=== PATIENT | female | born 2000 | race Two or more races ===

== ENCOUNTER 2021-01-26 21:12 | Emergency (ER) | payer BC ==
[~2021-01-26] VITALS: Ht 157.5 cm; Wt 75.0 kg
[2021-01-26] MEDS ORDERED: ALBUTEROL SULFATE 2.5 MG/3 ML NEBU. NEB ONE ×2 (21:30→22:15)
--- NOTE | 2021-01-26 22:08 | PHYS DOC ---
General Adult EDM: Chief Complaint: ASTHMA HPI: HPI: Patient is a 20 year old female with past medical history of asthma who is currently presents with a chief complaint of asthma exacerbation. Patient states onset of symptoms yesterday progressively worse. Patient has been using her prescription inhalers with minimal relief. Patient does have a cough with some sputum production. She denies any fevers chills. Review of Systems: Review of Systems: Review of systems: Constitutional symptoms- No fever, no chills. Eyes- No Discharge, No Visual Loss Respiratory symptoms-no shortness of breath positive cough positive wheeze Cardiovascular Systems; No chest pain, No Palpitations, No syncope Gastrointestinal symptoms: NO abdominal pain, no nausea, no vomiting or di arrhea. Genitourinary symptoms: No dysuria. Musculoskeletal symptoms: No back pain No extremity pain. NEUROLOGICAL Symptoms: No headache, no generalized weakness; No focal Weakness Heart Score: C/O Chest Pain: N/A Risk Factors: Risk Factors: DM, Current or recent (<one month) smoker, HTN, HLP, family history of CAD, obesity. Risk Scores: Score 0 - 3: 2.5% MACE over next 6 weeks - Discharge Home Score 4 - 6: 20.3% MACE over next 6 weeks - Admit for Clinical Observation Score 7 - 10: 72.7% MACE over next 6 weeks - Early Invasive Strategies Current Medications: Current Medications Medications (Trade) Dose Ordered Sig/Jose Antonio Start Time Stop Time Status Last Admin Dose Admin Albuterol Sulfate (Ventolin Neb Soln) 2.5 mg 1X ONCE 01/26/21 21:30 01/26/21 21:40 DC 01/26/21 21:46 2.5 MG Allergies: Allergies: Allergies Coded Allergies Type Severity Reaction Last Updated Verified shrimp Allergy Unknown 01/26/21 Yes Physical Exam: PE: General: alert, no acute distress. Skin: warm, dry and intact. Head:: Normocephalic, atraumatic. Neck: Trachea midline. Eyes: EOMI, Normal conjunctiva, No drainage CARDIOVASCULAR: Tachycardia RESPIRATORY: Expiratory wheeze tachypnea Back: Full range of motion. MUSCULOSKELETAL: Full range of motion of bilateral upper and lower extremities. GASTROINTESTINAL: Abdomen soft without rebound or guarding. NEUROLOGICAL: Alert and noted to person, place and time. No neurological def icits observed Psychiatric: Cooperative. Normal judgment Current Patient Data: Vital Signs: Vital Signs Date Time Temp Pulse Resp B/P (MAP) Pulse Ox O2 Delivery O2 Flow Rate FiO2 01/26/21 21:45 92 Room Air EKG: EKG: [] Radiology/Procedures: Radiology/Procedures: [] Course & Med Decision Making: Course & Med Decision Making Pertinent Labs and Imaging studies reviewed. (See chart for details) [] Treated with albuterol neb x2 with improvement Due to I decided to hold off on Solu-Medrol and prescription prednisone. Timi Disclaimer: Timi Disclaimer: This electronic medical record was generated, in whole or in part, using a voice recognition dictation system. Departure Departure Impression: Primary Impression: Asthma exacerbation Disposition: 01 DC HOME SELF CARE/HOMELESS Condition: STABLE Patient Instructions: Asthma, Adult Scripts Albuterol Sulfate (PROAIR HFA INHALER) 8.5 Gm Hfa.aer.ad 2 PUFF IH PRN Q4-6HRS PRN for wheezing for 21 Days, #1 INHALER 0 Refills Prov: ROSALIO TINAJERO DO 01/26/21 ROSALIO TINAJERO DO Jan 26, 2021 22:08
[2021-01-26] MEDS ORDERED: ALBU2.5V8 IH (23:07)
[2021-01-26 23:23] VITALS: BP 122/92
== END 2021-01-26 23:23 | disposition home or self-care (01) ==
LOC: ER 21:12
DX: O99.511 Diseases of the respiratory system complicating pregnancy, first trimester (principal); R05 Cough; R06.2 Wheezing; Z91.013 Allergy to seafood; Z3A.00 Weeks of gestation of pregnancy not specified
CPT/HCPCS: 94640; 99285; J7613

== ENCOUNTER 2021-01-27 02:56 | Inpatient (IN) | payer BC ==
[~2021-01-27] VITALS: Ht 157.5 cm; Wt 96.9 kg
[~2021-01-27 02:56] MED LIST: ALBU2.5V8 IH
[2021-01-27] MEDS ORDERED: IV NORMAL SALINE 500ML BAG 500 ML IV ONE (03:00)
[2021-01-27] MEDS ORDERED: ALBUTEROL SULFATE 2.5 MG/3 ML NEBU. NEB ONE (03:15)
[2021-01-27] MEDS ORDERED: IPRATRPIUM/ALBUTEROL 0.5/2.5MG 3 ML NEBU. NEB ONE (03:15)
[2021-01-27] MEDS ORDERED: MAGNESIUM SULFATE 1GM 100 ML IV ONE (03:15)
[2021-01-27 03:17] LABS: BASO % 0 % (0-3); EOS # 0.2 x10^3/uL (0.0-0.7); EOS % 1 % (0-3); HEMATOCRIT 39.3 % (36.0-47.0); HEMOGLOBIN 13.2 g/dL (12.0-15.5); LYMPH # 0.8 x10^3/uL (1.0-4.8); LYMPH % 6 % (24-48); MEAN CORPUSCULAR HEMOGLOBIN 27 pg (25-35); MEAN CORPUSCULAR HGB CONC 34 g/dL (31-37); MEAN CORPUSCULAR VOLUME 81 fL (79-100); MONO # 0.6 x10^3/uL (0.0-1.1); MONO % 4 % (0-9); NEUT # 13.1 x10^3/uL (1.8-7.7); NEUT % 89 % (31-73); PLATELET COUNT 365 x10^3/uL (140-400); RED BLOOD COUNT 4.88 x10^6/uL (3.50-5.40); RED CELL DISTRIBUTION WIDTH 13.8 % (11.5-14.5); WHITE BLOOD COUNT 14.7 x10^3/uL (4.0-11.0)
--- NOTE | 2021-01-27 03:19 | PHYS DOC ---
Past Medical History Past Medical History: Asthma Past Surgical History: Smoking Status: Never Smoker Alcohol Use: Occasionally General Adult EDM: Chief Complaint: ASTHMA HPI: HPI: Patient is a 20 year old female who is approximately 6 weeks presents with a chief complaint of shortness of breath. Patient has a past medical history asthma. She was seen earlier in the evening due to asthma exacerbation. Patient used her home inhalers with minimal improvement. While in the emergency department patient received 2 albuterol treatments with improvement. Patient was discharged home with albuterol inhaler. Prior to arrival patient awoke from sleep with focal deep breathing. Patient states she was wheezy used her albuterol but felt as if she was going to pass out. Patient denied any associated chest pain abdominal pain vaginal discharge or bleeding. On arrival patient was 86% on room air. Review of Systems: Review of Systems: Constitutional: Denies fever or chills. [] Eyes: Denies change in visual acuity. [] HENT: Denies nasal congestion or sore throat. [] Respiratory: Positive cough positive shortness of breath positive wheezing Cardiovascular: Denies chest pain or edema. [] GI: Denies abdominal pain, nausea, vomiting, bloody stools or diarrhea. [] : Denies dysuria. [] Positive Musculoskeletal: Denies back pain or joint pain. [] Integument: Denies rash. [] Neurologic: Denies headache, focal weakness or sensory changes. [] Endocrine: Denies polyuria or polydipsia. [] Lymphatic: Denies swollen glands. [] Psychiatric: Denies depression or anxiety. [] Heart Score: C/O Chest Pain: N/A Risk Factors: Risk Factors: DM, Current or recent (<one month) smoker, HTN, HLP, family history of CAD, obesity. Risk Scores: Score 0 - 3: 2.5% MACE over next 6 weeks - Discharge Home Score 4 - 6: 20.3% MACE over next 6 weeks - Admit for Clinical Observation Score 7 - 10: 72.7% MACE over next 6 weeks - Early Invasive Strategies Current Medications: Current Medications Medications (Trade) Dose Ordered Sig/Jose Antonio Start Time Stop Time Status Last Admin Dose Admin Albuterol Sulfate (Ventolin Neb Soln) 2.5 mg 1X ONCE 01/27/21 03:15 01/27/21 03:16 UNV Albuterol/ Ipratropium (Duoneb) 3 ml 1X ONCE 01/27/21 03:15 01/27/21 03:16 Magnesium Sulfate/ Dextrose 100 ml @ 100 mls/hr 1X ONCE 01/27/21 03:15 01/27/21 04:14 Sodium Chloride 500 ml @ 500 mls/hr 1X ONCE 01/27/21 03:00 01/27/21 03:59 Allergies: Allergies: Allergies Coded Allergies Type Severity Reaction Last Updated Verified shrimp Allergy Unknown 01/26/21 Yes Physical Exam: PE: General: alert, no acute distress. Skin: warm, dry and intact. Head:: Normocephalic, atraumatic. Neck: Trachea midline. Eyes: EOMI, Normal conjunctiva, No drainage CARDIOVASCULAR: Tachycardia RESPIRATORY: Diminished breath sounds, tachypneic Back: Full range of motion. MUSCULOSKELETAL: Full range of motion of bilateral upper and lower extremities. GASTROINTESTINAL: Abdomen soft without rebound or guarding. NEUROLOGICAL: Alert and noted to person, place and time. No neurological deficits observed Psychiatric: Cooperative. Normal judgment EKG: EKG: [] Radiology/Procedures: Radiology/Procedures: [] Impression: . Ill-defined left basilar opacities, may represent atelectasis or developing infiltrates including viral pneumonia. If persistent clinical concern, recommend follow-up. Course & Med Decision Making: Course & Med Decision Making Pertinent Labs and Imaging studies reviewed. (See chart for details) [] Patient was evaluated for chief complaint. Work-up consisted of laboratory analysis and radiologic imaging Treatment included Solu-Medrol, albuterol, DuoNeb, and magnesium. Mild improvement with treatment. X-ray radiologist questional left basilar infiltrate. Patient was treated for pneumonia with Rocephin and Zithromax. Reevaluation patient still tachycardic in the 120s and patient is requiring supplemental 2 L oxygen. Will admit the patient for further evaluation and treatment. Dragon Disclaimer: Dragon Disclaimer: This electronic medical record was generated, in whole or in part, using a voice recognition dictation system. Departure Departure Impression: Primary Impression: Asthma exacerbation Additional Impressions: Pneumonia Disposition: ADMITTED INPT THIS HOSP Admitting Physician: LULA Condition: STABLE Referrals: NO PCP (PCP) ROSALIO TINAJERO DO Jan 27, 2021 03:19
[2021-01-27 03:33] LABS: ALBUMIN 3.8 g/dL (3.4-5.0); CREATININE 0.6 mg/dL (0.6-1.0); POTASSIUM 3.7 mmol/L (3.5-5.1); TOTAL BILIRUBIN 0.6 mg/dL (0.2-1.0); TOTAL PROTEIN 7.6 g/dL (6.4-8.2)
--- NOTE | 2021-01-27 04:42 | RAD ---
XR CHEST 1V History: Reason: sob / Spl. Instructions: / History: Comparison: None. Findings: Ill-defined left basilar opacities. Impression: 1. Ill-defined left basilar opacities, may represent atelectasis or developing infiltrates including viral pneumonia. If persistent clinical concern, recommend follow-up. Electronically signed by: David Corrales DO (01/27/2021 4:40 AM) [facility] [place]
[2021-01-27 04:58] LABS: % BANDS 1 % (0-9); % EOS 2 % (0-5); % LYMPHS 4 % (24-48); % MONOS 4 % (0-10); % SEGS 89 % (35-66); PLT ESTIMATE ADEQUATE (ADEQUATE)
[2021-01-27] MEDS ORDERED: AZITHROMYCIN 250 MG TABLET. PO ONE (05:00)
[2021-01-27] MEDS ORDERED: cefTRIAXone IV Push 1 GM VIAL. IVP ONE (05:00)
[2021-01-27 08:00] VITALS: BP 110/65
[2021-01-27] MEDS ORDERED: POLYETHYLENE GLYCOL 3350 17 GM PACKET. PO PRN (09:15)
--- NOTE | 2021-01-27 09:22 | PDOC1 ---
History and Physical Date of Admission Date of Admission DATE: 01/27/21 TIME: 09:14 Identification/Chief Complaint Chief Complaint Shortness of breath Source Source: Patient History of Present Illness History of Present Illness Ms Acosta is a 20 year old female w/ asthma, ( x2, ages 1 and 1) who is approximately 6 weeks presents with a chief complaint of shortness of breath to the ED. She was actually seen earlier in the evening on 01/26 due to asthma exacerbation and was treated x2 with albuterol nebulizers and sent home with albuterol inhaler. She has not taken any steroids recently. However, she returned to ED early in the morning 01/27 complaining her home albuterol and pulmicort inhaler was giving her minimal improvement. Prior to arrival patient awoke from sleep with focal deep breathing. Patient states she was wheezy used her albuterol but felt as if she was going to pass out. Patient denied any associated chest pain or vaginal discharge or bleeding. On further review she does note for the last 2 weeks she has had intermittent crampy abdominal pain in her right upper quadrant now is also on her left lower quadrant she thinks it may be associated with fatty foods. Happened again this morning after breakfast. On arrival patient was 86% on room air. Labs with WBC 14.7, Hb 13.2, platelets 365, NA 138, K3.7 BUN 8, CR 0.6, glucose 132 Chest radiograph for this ill-defined opacity at the left base. Given empiric azithromycin and Rocephin as well as magnesium and albuterol nebulizers and admitted for further care Past Medical History Pulmonary: Asthma Past Surgical History Past Surgical History: (2017 and 2019) Family History Family History: Asthma, Diabetes, High Cholestrol, Hypertension Social History Smoke: No ALCOHOL: none Drugs: None Current Problem List Problem List Problems Medical Problems: (1) Asthma exacerbation Status: Acute (2) Pneumonia Status: Acute (3) Status: Acute Current Medications Current Medications Current Medications Sodium Chloride 500 ml @ 500 mls/hr 1X ONCE IV Last administered on 01/27/21at 03:32; Start 01/27/21 at 03:00; Stop 01/27/21 at 03:59; Status DC Albuterol/ Ipratropium (Duoneb) 3 ml 1X ONCE NEB Last administered on 01/27/21at 03:21; Start 01/27/21 at 03:15; Stop 01/27/21 at 03:16; Status DC Magnesium Sulfate/ Dextrose 100 ml @ 100 mls/hr 1X ONCE IV Last administered on 01/27/21at 03:33; Start 01/27/21 at 03:15; Stop 01/27/21 at 04:14; Status DC Albuterol Sulfate (Ventolin Neb Soln) 2.5 mg 1X ONCE NEB Last administered on 01/27/21at 03:21; Start 01/27/21 at 03:15; Stop 01/27/21 at 03:16; Status DC Ceftriaxone Sodium (Rocephin) 1 gm 1X ONCE IVP Last administered on 01/27/21at 05:23; Start 01/27/21 at 05:00; Stop 01/27/21 at 05:01; Status DC Azithromycin (Zithromax) 500 mg 1X ONCE PO Last administered on 01/27/21at 05:23; Start 01/27/21 at 05:00; Stop 01/27/21 at 05:01; Status DC Active Scripts Active Proair Hfa Inhaler (Albuterol Sulfate) 8.5 Gm Hfa.aer.ad 2 Puff IH PRN Q4-6HRS PRN 21 Days Allergies Allergies: Coded Allergies: shrimp (Verified Allergy, Unknown, 01/26/21) ROS General: YES: Fatigue, Malaise; No: Chills, Night Sweats, Appetite, Other PSYCHOLOGICAL ROS: No: Anxiety, Behavioral Disorder, Concentration difficultie, Decreased libido, Depression, Disorientation, Hallucinations, Hostility, Irritablity, Memory difficulties, Mood Swings, Obsessive thoughts, Physical abuse, Sexual abuse, Sleep disturbances, Suicidal ideation, Other Eyes: No Blurry vision, No Decreased vision, No Double vision, No Dry eyes, No Excessive tearing, No Eye Pain, No Itchy Eyes, No Loss of vision, No Photophobia, No Scotomata, No Uses contacts, No Uses glasses, No Other HEENT: No: Heacaches, Visual Changes, Hearing change, Nasal congestion, Nasal discharge, Oral lesions, Sinus pain, Sore Throat, Epistaxis, Sneezing, Snoring, Tinnitus, Vertigo, Vocal changes, Other ALLERGY AND IMMUNOLOGY: No: Hives, Insect Bite Sensitivity, Itchy/Watery Eyes, Nasal Congestion, Post Nasal Drip, Seasonal Allergies, Other Hematological and Lymphatic: No: Bleeding Problems, Blood Clots, Blood Transfusions, Brusing, Night Sweats, Pallor, Swollen Lymph Nodes, Other ENDOCRINE: No: Breast Changes, Galactorrhea, Hair Pattern Changes, Hot Flashes, Malaise/lethargy, Mood Swings, Palpitations, Polydipsia/polyuria, Skin Changes, Temperature Intolerance, Unexpected Weight Changes, Other Breast: No New/Changing Breast Lumps, No Nipple changes, No Nipple discharge, No Other Respiratory: YES: Cough, Shortness of breath, SOB with excertion, Tachypnea, Wheezing; No: Hemoptysis, Orthopnea, Pleuritic Pain, Sputum Changes, Stridor, Other Cardiovascular: No Chest Pain, No Palpitations, No Orthopnea, No Paroxysmal Noc. Dyspnea, No Edema, No Lt Headedness, No Other Gastrointestinal: Yes Nausea, Yes Abdominal Pain; No Vomiting, No Diarrhea, No Constipation, No Melena, No Hematochezia, No Other Genitourinary: No Dysuria, No Frequency, No Incontinence, No Hematuria, No Retention, No Discharge, No Urgency, No Pain, No Flank Pain, No Other, No , No , No , No , No , No , No Musculoskeletal: No Gait Disturbance, No Joint Pain, No Joint Stiffness, No Joint Swelling, No Muscle Pain, No Muscular Weakness, No Pain In:, No Swelling In:, No Other Neurological: No Behavorial Changes, No Bowel/Bladder ControlChng, No Confusion, No Dizziness, No Gait Disturbance, No Headaches, No Impaired Coord/balance, No Memory Loss, No Numbness/Tingling, No Seizures, No Speech Problems, No Tremors, No Visual Changes, No Weakness, No Other Skin: No Dry Skin, No Eczema, No Hair Changes, No Lumps, No Mole Changes, No Mottling, No Nail Changes, No Pruritus, No Rash, No Skin Lesion Changes, No Other, No Acne Physical Exam General: Alert, Oriented X3, Cooperative, moderate distress HEENT: Atraumatic, PERRLA, EOMI, Mucous membr. moist/pink Lungs: Other (Wheezes bilaterally) Heart: S1S2, RRR, no thrills, no rubs, no gallops, no murmurs Abdomen: Normal bowel sounds, Soft, No hepatosplenomegaly, No masses, Other (Ruq tendnerness. LLQ rebound tenderness) Rectal Exam: not examined Extremities: No clubbing, No cyanosis, No edema, Normal pulses, No tenderness/swelling Skin: No rashes, No breakdown, No significant lesion Neuro: Normal gait, Normal speech, Strength at 5/5 X4 ext, Normal tone, Sensation intact, Cranial nerves 3-12 NL, Reflexes 2+ Psych/Mental Status: Mental status NL, Mood NL Vitals Vitals Vital Signs Date Time Temp Pulse Resp B/P (MAP) Pulse Ox O2 Delivery O2 Flow Rate FiO2 01/27/21 06:32 106 106/63 (77) 98 Nasal Cannula 4.0 01/27/21 03:00 97.6 30 97.6 Labs Labs Laboratory Tests Test 01/27/21 03:10 White Blood Count 14.7 x10^3/uL (4.0-11.0) Red Blood Count 4.88 x10^6/uL (3.50-5.40) Hemoglobin 13.2 g/dL (12.0-15.5) Hematocrit 39.3 % (36.0-47.0) Mean Corpuscular Volume 81 fL (79-100) Mean Corpuscular Hemoglobin 27 pg (25-35) Mean Corpuscular Hemoglobin Concent 34 g/dL (31-37) Red Cell Distribution Width 13.8 % (11.5-14.5) Platelet Count 365 x10^3/uL (140-400) Neutrophils (%) (Auto) 89 % (31-73) Lymphocytes (%) (Auto) 6 % (24-48) Monocytes (%) (Auto) 4 % (0-9) Eosinophils (%) (Auto) 1 % (0-3) Basophils (%) (Auto) 0 % (0-3) Neutrophils # (Auto) 13.1 x10^3/uL (1.8-7.7) Lymphocytes # (Auto) 0.8 x10^3/uL (1.0-4.8) Monocytes # (Auto) 0.6 x10^3/uL (0.0-1.1) Eosinophils # (Auto) 0.2 x10^3/uL (0.0-0.7) Basophils # (Auto) 0.0 x10^3/uL (0.0-0.2) Segmented Neutrophils % 89 % (35-66) Band Neutrophils % 1 % (0-9) Lymphocytes % 4 % (24-48) Monocytes % 4 % (0-10) Eosinophils % 2 % (0-5) Platelet Estimate Adequate (ADEQUATE) Sodium Level 138 mmol/L (136-145) Potassium Level 3.7 mmol/L (3.5-5.1) Chloride Level 104 mmol/L (98-107) Carbon Dioxide Level 21 mmol/L (21-32) Anion Gap 13 (6-14) Blood Urea Nitrogen 8 mg/dL (7-20) Creatinine 0.6 mg/dL (0.6-1.0) Estimated GFR (Cockcroft-Gault) 125.0 BUN/Creatinine Ratio 13 (6-20) Glucose Level 132 mg/dL (70-99) Calcium Level 8.0 mg/dL (8.5-10.1) Total Bilirubin 0.6 mg/dL (0.2-1.0) Aspartate Amino Transf (AST/SGOT) 24 U/L (15-37) Alanine Aminotransferase (ALT/SGPT) 29 U/L (14-59) Alkaline Phosphatase 109 U/L (46-116) Total Protein 7.6 g/dL (6.4-8.2) Albumin 3.8 g/dL (3.4-5.0) Albumin/Globulin Ratio 1.0 (1.0-1.7) Laboratory Tests Test 01/27/21 03:10 White Blood Count 14.7 x10^3/uL (4.0-11.0) Red Blood Count 4.88 x10^6/uL (3.50-5.40) Hemoglobin 13.2 g/dL (12.0-15.5) Hematocrit 39.3 % (36.0-47.0) Mean Corpuscular Volume 81 fL (79-100) Mean Corpuscular Hemoglobin 27 pg (25-35) Mean Corpuscular Hemoglobin Concent 34 g/dL (31-37) Red Cell Distribution Width 13.8 % (11.5-14.5) Platelet Count 365 x10^3/uL (140-400) Neutrophils (%) (Auto) 89 % (31-73) Lymphocytes (%) (Auto) 6 % (24-48) Monocytes (%) (Auto) 4 % (0-9) Eosinophils (%) (Auto) 1 % (0-3) Basophils (%) (Auto) 0 % (0-3) Neutrophils # (Auto) 13.1 x10^3/uL (1.8-7.7) Lymphocytes # (Auto) 0.8 x10^3/uL (1.0-4.8) Monocytes # (Auto) 0.6 x10^3/uL (0.0-1.1) Eosinophils # (Auto) 0.2 x10^3/uL (0.0-0.7) Basophils # (Auto) 0.0 x10^3/uL (0.0-0.2) Segmented Neutrophils % 89 % (35-66) Band Neutrophils % 1 % (0-9) Lymphocytes % 4 % (24-48) Monocytes % 4 % (0-10) Eosinophils % 2 % (0-5) Platelet Estimate Adequate (ADEQUATE) Sodium Level 138 mmol/L (136-145) Potassium Level 3.7 mmol/L (3.5-5.1) Chloride Level 104 mmol/L (98-107) Carbon Dioxide Level 21 mmol/L (21-32) Anion Gap 13 (6-14) Blood Urea Nitrogen 8 mg/dL (7-20) Creatinine 0.6 mg/dL (0.6-1.0) Estimated GFR (Cockcroft-Gault) 125.0 BUN/Creatinine Ratio 13 (6-20) Glucose Level 132 mg/dL (70-99) Calcium Level 8.0 mg/dL (8.5-10.1) Total Bilirubin 0.6 mg/dL (0.2-1.0) Aspartate Amino Transf (AST/SGOT) 24 U/L (15-37) Alanine Aminotransferase (ALT/SGPT) 29 U/L (14-59) Alkaline Phosphatase 109 U/L (46-116) Total Protein 7.6 g/dL (6.4-8.2) Albumin 3.8 g/dL (3.4-5.0) Albumin/Globulin Ratio 1.0 (1.0-1.7) Images Images Chest radiograph: Ill-defined left basilar opacities. Impression: 1. Ill-defined left basilar opacities, may represent atelectasis or developing infiltrates including viral pneumonia. If persistent clinical concern, recommend follow-up. VTE Prophylaxis Ordered VTE Prophylaxis Devices: No VTE Pharmacological Prophylaxi: Yes Assessment/Plan Assessment/Plan A/P: Acute respiratory failure with hypoxia Moderate persistent asthma with acute exacerbation Leukocytosis -meets SIRS criteria, given empiric antibiotics for sepsis related to asthma exacerbation Abnormal chest x-ray -mild left lower lobe early infiltrate this is possibly a pneumonia likely gram-negative atypical given her history of asthma and s tructural lung disease. Covered with azithromycin and Rocephin empirically today. Will follow procalcitonin Abdominal pain -given her obesity and third this is likely gallbladder colic. Will obtain right upper quadrant ultrasound to assess for symptomatic cholelithiasis or biliary sludge or acute cholecystitis Obesity -counseled on weight loss diet and exercise. Hyperglycemia -likely reactive due to stress, will monitor - 6 weeks, by patient estimate. HCG of 2422 could be consistent with this. FEN - General diet PPX - lovenox FULL CODE Dispo - inpatient Justifications for Admission Other Justification ANTONI JACOBSON MD Jan 27, 2021 09:22
[2021-01-27] MEDS ORDERED: diphenhydrAMINE 50 MG/ML VIAL IVP PRN (09:30)
[2021-01-27] MEDS ORDERED: ALBUTEROL SULFATE 2.5 MG/3 ML NEBU. NEB PRN (09:30)
[2021-01-27 11:00] VITALS: BP 113/59
[2021-01-27] MEDS: PYRIDOXINE 50 MG TABLET. PO SCH (11:05)
[2021-01-27] MEDS: PRENATAL MULTIVITAMIN TABLET. PO SCH (11:05)
[2021-01-27] MEDS ORDERED: ACETAMINOPHEN 325 MG TABLET. PO PRN (12:00)
[2021-01-27] MEDS ORDERED: ONDANSETRON PF 4 MG/2 ML VIAL. IV PRN (12:00)
[2021-01-27] MEDS: BUDESONIDE 0.5 MG/2 ML NEBU. NEB SCH ×2 (12:49→21:07)
[2021-01-27] MEDS: IPRATRPIUM/ALBUTEROL 0.5/2.5MG 3 ML NEBU. NEB SCH ×3 (12:49→21:08)
[2021-01-27 15:00] VITALS: BP 133/51
[2021-01-27] MEDS: ENOXAPARIN 40 MG/0.4 ML SYRINGE. SQ SCH (17:13)
[2021-01-27 19:41] VITALS: BP 107/63
[2021-01-27] MEDS: PSYLLIUM HUSK (SUGAR FREE) 1 PKT PACKET PO SCH (21:00)
[2021-01-27 23:25] VITALS: BP 119/64
--- NOTE | 2021-01-28 05:35 | RAD ---
US ABDOMEN LTD History: Reason: RUQ pain, concern for symptomatic cholelithiasis, / Spl. Instructions: / History: Comparison: None. Technique: Transabdominal ultrasound images are obtained of the right upper quadrant. Findings: Liver is increased in echogenicity. Right hepatic lobe measures 21 cm. Portal flow is hepatopedal. No cholelithiasis. No gallbladder wall thickening. No pericholecystic fluid. Common bile duct measures 3.2 mm in diameter. Visualized pancreas not well seen due to overlying bowel gas. The right kidney measures 13.5 x 4.7 x 4.3 cm. No hydronephrosis. Visualized portions of the aorta and IVC have normal caliber. IMPRESSION: 1. Hepatomegaly with increased echotexture, may indicate steatosis. Electronically signed by: David Corrales DO (01/28/2021 5:32 AM) [id number]
[2021-01-28 07:00] VITALS: BP 133/70
[2021-01-28] MEDS: BUDESONIDE 0.5 MG/2 ML NEBU. NEB SCH ×2 (07:32→19:37)
[2021-01-28] MEDS: IPRATRPIUM/ALBUTEROL 0.5/2.5MG 3 ML NEBU. NEB SCH ×4 (07:32→19:37)
[2021-01-28] MEDS: PYRIDOXINE 50 MG TABLET. PO SCH (10:19)
[2021-01-28] MEDS: cefTRIAXone IV Push 1 GM VIAL. IVP SCH (10:19)
[2021-01-28] MEDS: PRENATAL MULTIVITAMIN TABLET. PO SCH (10:19)
--- NOTE | 2021-01-28 10:53 | PDOC ---
[facility] PROGRESS NOTE Date of Service DOS: DATE: 01/28/21 TIME: 10:51 Chief Complaint Chief Complaint Acute respiratory failure with hypoxia Moderate persistent asthma with acute exacerbation Leukocytosis -meets SIRS criteria, given empiric antibiotics for sepsis related to asthma exacerbation Abnormal chest x-ray -mild left lower lobe early infiltrate this is possibly a pneumonia likely gram-negative atypical given her history of asthma and structural lung disease. Covered with azithromycin and Rocephin empirically today. Will follow procalcitonin Abdominal pain -given her obesity and third this is likely gallbladder colic. Will obtain right upper quadrant ultrasound to assess for symptomatic cholelithiasis or biliary sludge or acute cholecystitis Obesity -counseled on weight loss diet and exercise. Hyperglycemia -likely reactive due to stress, will monitor - 6 weeks, by patient estimate. HCG of 2422 could be consistent with this. FEN - General diet PPX - lovenox FULL CODE Dispo - inpatient History of Present Illness History of Present Illness 01/28/2021 No acute events overnight. Patient seen and examined bedside. Patient still requiring 4 L nasal cannula to saturate 99%. No concerns from nursing. We will continue IV empiric antibiotics and budesonide nebulizer treatments twice daily. Patient's chart, labs, images were reviewed and discussed with RN 20 year old female w/ asthma, ( x2, ages 1 and 1) who is approximately 6 weeks presents with a chief complaint of shortness of breath to the ED. She was actually seen earlier in the evening on 01/26 due to asthma exacerbation and was treated x2 with albuterol nebulizers and sent home with albuterol inhaler. She has not taken any steroids recently. However, she returned to ED early in the morning 01/27 complaining her home albuterol and pulmicort inhaler was giving her minimal improvement. Prior to arrival patient awoke from sleep with focal deep breathing. Patient states she was wheezy used her albuterol but felt as if she was going to pass out. Patient denied any associated chest pain or vaginal discharge or bleeding. On further review she does note for the last 2 weeks she has had intermittent crampy abdominal pain in her right upper quadrant now is also on her left lower quadrant she thinks it may be associated with fatty foods. Happened again this morning after breakfast. On arrival patient was 86% on room air. Labs with WBC 14.7, Hb 13.2, platelets 365, NA 138, K3.7 BUN 8, CR 0.6, glucose 132 Chest radiograph for this ill-defined opacity at the left base. Given empiric azithromycin and Rocephin as well as magnesium and albuterol nebulizers and admitted for further care Vitals/I&O Vitals/I&O: Vital Signs Date Time Temp Pulse Resp B/P (MAP) Pulse Ox O2 Delivery O2 Flow Rate FiO2 01/28/21 07:34 99 Nasal Cannula 4.0 01/28/21 07:00 98.1 74 16 133/70 (91) 98.1 I & O 01/27/21 01/27/21 01/28/21 15:00 23:00 07:00 Intake Total 200 ml 320 ml Output Total 1 ml Balance 200 ml 319 ml Physical Exam General: Alert, Oriented X3, Cooperative, moderate distress Heart: No murmurs Lungs: Wheezing Abdomen: Normal bowel sounds, Soft, No hepatosplenomegaly, No masses, Other (Ruq tendnerness. LLQ rebound tenderness) Extremities: No clubbing, No cyanosis, No edema, Normal pulses, No tenderness/swelling Skin: No rashes, No breakdown, No significant lesion Assessment and Plan Assessmemt and Plan Problems Medical Problems: (1) Asthma exacerbation Status: Acute (2) Pneumonia Status: Acute (3) Status: Acute Comment Review of Relevant I have reviewed the following items velvet (where applicable) has been applied. Medications: Current Medications Medications (Trade) Dose Ordered Sig/Jose Antonio Route PRN Reason Start Time Stop Time Status Last Admin Dose Admin Albuterol/ Ipratropium (Duoneb) 3 ml RTQID NEB 01/27/21 12:00 01/28/21 07:32 Enoxaparin Sodium (Lovenox 40mg Syringe) 40 mg Q24H SQ 01/27/21 13:00 01/27/21 17:13 Ceftriaxone Sodium (Rocephin) 1 gm Q24H IVP 01/28/21 09:00 01/28/21 10:19 Justifications for Admission Other Justification ZA BELLE MD Jan 28, 2021 10:53
[2021-01-28 11:00] VITALS: BP 105/59
--- NOTE | 2021-01-28 13:00 | NUR ---
SW following for discharge planning. Spoke with RN and reviewed chart. Pt from home. Pt . Pt on IV Rocephin and 4l 02. No home 02. SW following.
[2021-01-28] MEDS: ENOXAPARIN 40 MG/0.4 ML SYRINGE. SQ SCH (13:27)
[2021-01-28 15:00] VITALS: BP 118/62
[2021-01-28 19:00] VITALS: BP 119/68
[2021-01-28] MEDS: PSYLLIUM HUSK (SUGAR FREE) 1 PKT PACKET PO SCH (20:53)
[2021-01-28 23:05] VITALS: BP 120/61
[2021-01-28 23:16] LABS: HEMOGLOBIN A1C 5.6 % (4.8-5.6)
[2021-01-29 03:00] VITALS: BP 99/64
[2021-01-29 07:00] VITALS: BP 149/58
[2021-01-29] MEDS: BUDESONIDE 0.5 MG/2 ML NEBU. NEB SCH (07:17)
[2021-01-29] MEDS: IPRATRPIUM/ALBUTEROL 0.5/2.5MG 3 ML NEBU. NEB SCH ×2 (07:17→11:07)
[2021-01-29] MEDS: PYRIDOXINE 50 MG TABLET. PO SCH (09:17)
[2021-01-29] MEDS: PRENATAL MULTIVITAMIN TABLET. PO SCH (09:17)
[2021-01-29] MEDS: cefTRIAXone IV Push 1 GM VIAL. IVP SCH (09:18)
[2021-01-29 11:00] VITALS: BP 109/64
--- NOTE | 2021-01-29 12:04 | NUR ---
SW following for discharge planning. Spoke with RN and reviewed chart. Pt remains on IV Rocephin. Pt titrated to 1l 02. Pt will not likely need home 02 on discharge. Possible discharge home today, 01/29 self-care on oral medications. No anticipated SW needs on discharge. SW following. Addendum: 01/29/21 at 1432 by KYA ROCHA SW Pt to discharge home today, self-care. Pt on room air and oral medications. No further SW needs at this time.
[2021-01-29] MEDS: ENOXAPARIN 40 MG/0.4 ML SYRINGE. SQ SCH (12:20)
--- NOTE | 2021-01-29 13:26 | DISCH ---
DISCHARGE INSTRUCTIONS Condition on Discharge Condition on Discharge: Stable Activity After Discharge Activity Instructions for Disc: No restrictions Driving Instructions after Dis: Do not drive today Follow-Up Follow up with: PCP within 2 weeks of discharge ZA BELLE MD Jan 29, 2021 13:26
[2021-01-29] MEDS ORDERED: ALBU2.5V14 NEB ×2 (15:28→15:29)
[2021-01-29] MEDS ORDERED: ALBU2.5V8 IH (15:30)
--- NOTE | 2021-01-29 16:05 | NUR ---
Discharge Note: [facility] Discharge instructions and discharge home medications reviewed with Patient and a copy given. Education given over PNA and asthma. All questions have been answered and understanding verbalized. The following instructions and handouts were given: Follow up with your primary care physician. Discontinued IV line and telemetry. Patient discharged to home with self care via wheelchair.
--- NOTE | 2021-01-31 18:56 | PDOC3 ---
[facility]-Discharge Summary Date of Admission: Date of Admission: Jan 27, 2021 Date of Discharge: Date of Discharge: Jan 29, 2021 Discharge Diagnosis: Discharge Diagnosis: Acute respiratory failure with hypoxia Moderate persistent asthma with acute exacerbation Leukocytosis -meets SIRS criteria, given empiric antibiotics for sepsis related to asthma exacerbation Abnormal chest x-ray -mild left lower lobe early infiltrate this is possibly a pneumonia likely gram-negative atypical given her history of asthma and structural lung disease. Covered with azithromycin and Rocephin empirically today. Will follow procalcitonin Abdominal pain -given her obesity and third this is likely gallbladder colic. Will obtain right upper quadrant ultrasound to assess for symptomatic cholelithiasis or biliary sludge or acute cholecystitis Obesity -counseled on weight loss diet and exercise. Hyperglycemia -likely reactive due to stress, will monitor - 6 weeks, by patient estimate. HCG of 2422 could be consistent with this. Hospital Course: Hospital Course: By day of discharge, patient was clinically stable and saturating well on RA. No wheezing or dyspnea. She will go home with rescue inhaler and nebulizer solution and a script for her machine. Rest of hospital course was uneventful. 01/28/2021 No acute events overnight. Patient seen and examined bedside. Patient still requiring 4 L nasal cannula to saturate 99%. No concerns from nursing. We will continue IV empiric antibiotics and budesonide nebulizer treatments twice daily. Patient's chart, labs, images were reviewed and discussed with RN 20 year old female w/ asthma, ( x2, ages 1 and 1) who is approximately 6 weeks presents with a chief complaint of shortness of breath to the ED. She was actually seen earlier in the evening on 01/26 due to asthma exacerbation and was treated x2 with albuterol nebulizers and sent home with albuterol inhaler. She has not taken any steroids recently. However, she returned to ED early in the morning 01/27 complaining her home albuterol and pulmicort inhaler was giving her minimal improvement. Prior to arrival patient awoke from sleep with focal deep breathing. Patient states she was wheezy used her albuterol but felt as if she was going to pass out. Patient denied any associated chest pain or vaginal discharge or bleeding. On further review she does note for the last 2 weeks she has had intermittent crampy abdominal pain in her right upper quadrant now is also on her left lower quadrant she thinks it may be associated with fatty foods. Happened again this morning after breakfast. On arrival patient was 86% on room air. Labs with WBC 14.7, Hb 13.2, platelets 365, NA 138, K3.7 BUN 8, CR 0.6, glucose 132 Chest radiograph for this ill-defined opacity at the left base. Given empiric azithromycin and Rocephin as well as magnesium and albuterol nebulizers and admitted for further care Disposition: Disposition/Orders: D/C to Home Activity: Activity: Resume previous activity Diet: Diet: Regular Medications: Home Meds Active Scripts Albuterol Sulfate (PROAIR HFA INHALER) 8.5 Gm Hfa.aer.ad, 2 PUFF IH PRN Q4-6HRS PRN for wheezing for 21 Days, #1 INHALER 0 Refills Prov:ZA BELLE MD 01/29/21 Albuterol Sulfate (ALBUTEROL SULFATE CONC NEB SOLN) 2.5 Mg/0.5 Ml Vial.neb, 1 VIAL NEB Q6HRS PRN for SHORTNESS OF BREATH for 30 Days, #60 VIAL 1 Refill Prov:ZA BELLE MD 01/29/21 Scheduled PRN Albuterol Sulfate (Albuterol Sulfate Conc Neb Soln), 1 VIAL NEB Q6HRS PRN for SHORTNESS OF BREATH Albuterol Sulfate (Proair Hfa Inhaler), 2 PUFF IH PRN Q4-6HRS PRN for wheezing Total Time: Total Time: Total time spent was 40 minutes in preparing scripts, discharge planning with SW and RN, and preparing this discharge summary. Patient seen and examined on day of discharge. Justicifation of Admission Dx: Justifications for Admission: Justification of Admission Dx: Yes Respiratory Failure: Severe Resp Distress ZA BELLE MD Jan 31, 2021 18:56
== END 2021-01-29 16:01 | disposition home or self-care (01) | DRG 831 ==
LOC: ER 02:56 → OBSVTOIN 06:25 → 6 SOUTH 06:25
PROVIDERS: ADMIT Family Medicine; ATTEND Family Medicine
DX: O98.811 Other maternal infectious and parasitic diseases complicating pregnancy, first trimester (principal); A41.9 Sepsis, unspecified organism; J96.01 Acute respiratory failure with hypoxia; J45.41 Moderate persistent asthma with (acute) exacerbation; O99.211 Obesity complicating pregnancy, first trimester; O99.810 Abnormal glucose complicating pregnancy; O99.511 Diseases of the respiratory system complicating pregnancy, first trimester; E66.9 Obesity, unspecified; R73.9 Hyperglycemia, unspecified; Z68.39 Body mass index [BMI] 39.0-39.9, adult; Z91.013 Allergy to seafood; Z3A.01 Less than 8 weeks gestation of pregnancy; Z83.3 Family history of diabetes mellitus; Z82.5 Family history of asthma and other chronic lower respiratory diseases; Z82.49 Family history of ischemic heart disease and other diseases of the circulatory system
CPT/HCPCS: 36415; 71045; 76705; 80053; 83036; 84145; 84702; 85007; 85025; 94640; 94760; 96365; 96375; 99285; J0696; J1650; J3475; J7040; G0378; J7613; J7626